=== PATIENT | male | born 1960 ===

== ENCOUNTER 2024-07-18 12:57 | Emergency (ER) | payer MEDICARE, OTHER ==
[~2024-07-18] VITALS: Ht 185.4 cm; Wt 100.0 kg
[2024-07-18 14:46] VITALS: BP 119/61; PULSE 74; RESP 18; O2SAT 99
--- NOTE | 2024-07-19 08:22 | ECG ---
[facility] Test Date: 2024-07-18 Test Time: 13:00:43 Pat Name: ARIELLE RENTERIA Department: ED Room: Gender: M Rv Service Technician: LLOYD : 1960 Requested By: EMERGENCY EMERGENCY Order Number: [id number] Reading MD: Immanuel Wilson Measurements Intervals [place] Rate: 72 P: 68 TN: 134 QRS: 34 QRSD: 104 T: 55 QT: 410 QTc: 449 Interpretive Statements Sinus rhythm Minimal ST depression, anterolateral leads Electronically Signed On 07-19-2024 12:10:25 PST by Immnauel Wilson Please click the below link to view image of tracing.
== END 2024-07-18 17:00 | disposition left against medical advice (07) ==
LOC: ER 12:57 → EDBD 12:57 → ER 17:00
DX: R53.1 Weakness (principal); R42 Dizziness and giddiness; Z53.21 Procedure and treatment not carried out due to patient leaving prior to being seen by health care provider
CPT/HCPCS: 93005